=== PATIENT | male | born 1980 | race Caucasian/White ===

== ENCOUNTER 2018-06-21 12:41 | Emergency (ER) | payer OTHER ==
[~2018-06-21] VITALS: Ht 165.1 cm; Wt 70.3 kg
[2018-06-21 13:01] VITALS: BP 104/68
--- NOTE | 2018-06-21 13:10 | NUR ---
PT. CAME INTO THE ED DUE TO LOWER BACK PAIN X 1 DAY. PT. DENIES ANY INJURY. LOWER EXTREMITIES SENSATION INTACT. RR EVEN AND UNLABORED. 6/10 ACHING PAIN IN LOWER BACK. PT STATES " I WAS SITTING AND I REACHED OVER TO PULL SOMETHING AND EVER SINCE THEN IT HURTS AND IT FEELS TIGHT". ER MD NOTIFIED. WILL CONTINUE TO MONITOR. SAFETY PRECAUTIONS IMPLEMENTED. VSS.
[2018-06-21] MEDS ORDERED: KETOROLAC 60 MG/2 ML VIAL IM ONE (13:25)
--- NOTE | 2018-06-21 13:26 | NUR ---
PT. TAKEN TO XRAY VIA WHEELCHAIR BY TECH
[2018-06-21] MEDS ORDERED: IBUPROFEN 600 MG TAB PO ONE (13:40)
--- NOTE | 2018-06-21 14:00 | NUR ---
PT. RESTING COMFORTABLY IN BED, RR EVEN AND UNLABORED. WILL CONTINUE TO MONITOR.
[2018-06-21 14:58] VITALS: BP 110/70
== END 2018-06-21 14:58 | disposition home or self-care (01) ==
LOC: MED 12:41
DX: M54.5 Low back pain (principal)
CPT/HCPCS: 72100; 99284; Q0092; J1885